=== PATIENT | male | born 1960 | race African-American/Black ===

== ENCOUNTER 2017-07-07 12:19 | Observation (INO) | payer OTHER ==
[2017-07-07 13:38] LABS: CKMB 2.2 ng/mL (0-6.6); Troponin I 0.113 ng/mL (< 0.028)
[2017-07-07] MEDS ORDERED: HYDROcodone/Acetaminophen 5/325 mg Tablet PO PRN (14:52)
[2017-07-07] MEDS ORDERED: Ondansetron ODT 4 MG TAB PO PRN (14:52)
[2017-07-07] MEDS ORDERED: Acetaminophen 325 MG TAB PO PRN (14:52)
[2017-07-07] MEDS ORDERED: Ondansetron HCl/PF 4 MG/2 ML Vial IVP PRN (14:52)
[2017-07-07] MEDS ORDERED: Enoxaparin Sodium 40 MG/0.4 ML SYRINGE SC SCH (15:30)
--- NOTE | 2017-07-07 15:40 | HP ---
DATE OF ADMISSION: 07/07/2017 PRIMARY CARE PHYSICIAN: Cash Neely D.O. TIME OF SERVICE: 1445. CHIEF COMPLAINT: Chest pain. HISTORY OF PRESENT ILLNESS: Mr. Velasco is a pleasant 56-year-old -[place] male with no sign ificant past medical history who presents to an outside Emergency Department with complaints of chest pain. The patient gives a history of chest discomfort. He describes a pressure sensation across his right chest and radiating down his right arm that occurred while walking across football field at the [employer] he works at. He leaned against him and fence, took some deep breaths and after a couple of minutes, went away. He did describe some lightheadedness, but no syncope or presyncope. No palpitations. The pain/tightness has not returned, however, two separate times in the last 24 hours, the patient co ntinued to have some lightheadedness and most recent today accompanied by some palpitations. He went to an outside Emergency Department for evaluation and was found to have troponin of 0.133, nonspecif ic ST-T changes and a blood pressure in the 150s over 100s. He has no significant risk factors other than tobacco use, so I transferred him here for possible non -ST elevation MA. On arrival here, we were called for admission. Repeat troponin was 0.113. He had no further chest p ains, no dyspnea on exertion, fevers, chills, cough, sputum production or orthostasis. PAST MEDICAL HISTORY: None. PAST SURGICAL HISTORY: Includes hernia repair about 20 years ago. HOME MEDICATIONS: None. ALLERGIES: NKDA. FAMILY HISTORY: Mother with diabetes and hypertension, he has an uncle with coronary disease with hi s first heart attack sometime in early 60s, but no premature coronary disease. SOCIAL HISTORY: Significant tobacco about 1-1/2 to 1 pack per day longer than he can remember and us e social alcohol and no IV drug use. He works for the [employer]. REVIEW OF SYSTEMS: Ten point review of systems performed was negative for all systems except as per HPI. PHYSICAL EXAMINATION: VITAL SIGNS: Temperature here 98.0, pulse 52, blood pressure 153/101, respiratory rate 20, O2 sat 98 % on room air. GENERAL: He is awake. He is alert. He is oriented x3. He is a thin, well-developed, well-nourishe d -[place]ian male who is in zero distress. HEENT: Normocephalic, atraumatic. Pupils equal, round, reactive to light bilaterally. ENT: Mucous membranes moist. No visible lesions. No thrush. NECK: Supple, without lymphadenopathy, JVD, or thyromegaly. He has normal carotid upstrokes. I do not appreciate bruits. RESPIRATORY: Clear to auscultation bilaterally without wheezes, rales or rhonchi. He has good air m ovement. Symmetrical chest excursion. No prolonged expiratory phase. CARDIOVASCULAR: He has a normal S1, he and S2 with a fixed split. He has no audible murmurs. No S3 or S4. ABDOMEN: Soft and is nontender, nondistended, no masses or organomegaly. No rebound, rigidity or gu arding. EXTREMITIES: No cyanosis, no clubbing. He has no edema. He has 2+ dorsalis pedis and posterior tib ial pulses bilaterally. SKIN: Warm and well perfused. No rashes or lesions. MUSCULOSKELETAL: Normal to inspection. Joints appear uninflamed. There is no palpable effusion. N o inflammation or tenderness. NEUROLOGIC: Cranial nerves II-XII were grossly intact. He has no focal neurologic deficits. Normal speech, 5/5 strength in all 4 extremities. LABORATORY DATA: Sodium is 134, potassium 3.8, chloride 104, bicarb 21, BUN 10, creatinine 1.06, glu cose 109, calcium 9.1. LFTs completely within normal limits. CBC: White count 7.5, hemoglobin 17.9 , hematocrit 50.8, platelet count 191,000. CK-MB is 2.5, troponin I 0.133 followed by 0.113. Chest x-ray shows no acute cardiopulmonary disease . ASSESSMENT AND PLAN: 1. Chest pain. The patient has a risk factor of tobacco use. We will place him on the nitro paste, hold beta dorita due to current bradycardia in the 50s. We will get serial cardiac biomarkers. If negative, we will get a stress test in the morning. It was abnormal, asked Cardiology to evaluate, will check a fasting lipid profile in the morning, and reevaluate. 2. Elevated blood pressure 153/101 on arrival, patient does not have a history of high blood pressur e and his mother says normally on the low side. We will watch closely, may be due to stress of being admitted. 3. Tobacco abuse, counseling regarding cessation was done. The patient was offered nicotine patch, but declined. 4. Abnormal troponins, is in indeterminate range of 0.133, then 0.113. Pain was yesterday, so certa inly could be trending down, but still should not have been in the truly abnormal range.
[2017-07-07 15:59] LABS: CKMB 1.8 ng/mL (0-6.6); Troponin I 0.115 ng/mL (< 0.028)
[2017-07-07] MEDS: Nitroglycerin 2% Ointment 1 INCH/1 GM Packet TOP SCH ×2 (16:19→23:15)
[2017-07-07] MEDS: Famotidine 20 MG TAB PO SCH (20:07)
[2017-07-07 23:16] LABS: CKMB 1.4 ng/mL (0-6.6); Troponin I 0.154 ng/mL (< 0.028)
[2017-07-08 05:03] LABS: ALT (SGPT) 11 U/L (8-55); AST (SGOT) 12 U/L (5-34); Albumin 3.5 g/dL (3.5-5.0); Alkaline Phosphatase 69 U/L (40-150); Anion Gap 10 mmol/L (10-20); BUN (Urea Nitrogen) 12 mg/dL (8.4-25.7); Bilirubin, Total 0.6 mg/dL (0.2-1.2); Calc. Creatinine Clearance 86 mL/min (70-130); Calcium 8.9 mg/dL (7.8-10.44); Carbon Dioxide 23 mmol/L (22-29); Cardiac Risk 3.2 (Less than 4.5); Chloride 107 mmol/L (98-107); Cholesterol 130 mg/dl (< 200 Desired); Estimated GFR-MDRD Greater than 90; Globulin 3.2 g/dL (2.4-3.5); Glucose 96 mg/dL (70-105); HDL Cholesterol 41 mg/dL (>60 Neg Risk); LDL Cholesterol, Calculated 71 mg/dL; Potassium 4.1 mmol/L (3.5-5.1); Protein, Total 6.7 g/dL (6.0-8.3); Sodium 136 mmol/L (136-145); Triglycerides 91 mg/dL (Less than 150)
[2017-07-08 07:44] LABS: Hemoglobin 15.7 g/dL (14.0-18.0); Mean Corpuscular HGB CONC 33.5 g/dL (32.0-36.0); Mean Corpuscular Hemoglobin 30.8 pg (27.0-31.0); Mean Corpuscular Volume 92.1 fl (80.0-94.0); Platelet Count 183 thou/uL (130-400); RBC Distribution Width 12.9 % (11.5-14.5); Red Blood Cell (RBC) Count 5.09 mill/uL (4.70-6.10); White Blood Cell (WBC) Count 5.2 thou/uL (4.8-10.8)
[2017-07-08 07:58] LABS: CKMB 1.1 ng/mL (0-6.6); Troponin I 0.127 ng/mL (< 0.028)
[2017-07-08] MEDS: Famotidine 20 MG TAB PO SCH ×2 (08:51→20:11)
[2017-07-08] MEDS: Nitroglycerin 2% Ointment 1 INCH/1 GM Packet TOP SCH ×2 (08:52→16:46)
[2017-07-08] MEDS ORDERED: Regadenoson 0.4 MG/5 ML SYRINGE ONE (10:00)
[2017-07-08 12:11] LABS: Band 1 % (5-11); Eosinophils 2 % (0-10); Lymphocytes 57 % (21-51); MDiff Complete? YES; Monocytes 10 % (0-10); Neutrophil 30 % (42-75); RBC Morphology Normal
--- NOTE | 2017-07-08 13:48 | NM ---
NUCLEAR MEDICINE CARDIAC STRESS WITH EF AND WALL MOTION: HISTORY: Indeterminate troponin. Chest pain. COMPARISON: None. TECHNIQUE: The patient was administered 9.5 mCi of Technetium 99m sestamibi for rest imaging and 30.30 mCi of Te chnetium 99m sestamibi for stress imaging. Cardiac gating is performed. FINDINGS: Homogeneous distribution of the radiotracer in the left ventricle on the nonattenuated correction william ges. No reversibility. No fixed defect. TID is 1.01. End-diastolic volume is 203 mL. End-systolic volume is 133 mL. CARDIAC GATING: Diffuse hypokinesis. Ejection fraction is 34%. IMPRESSION: 1. No reversibility. No fixed defect. 2. Cardiomegaly. 3. Global hypokinesis with ejection fraction is 34%. POS: JAMIE
[2017-07-08] MEDS ORDERED: Aspirin 81 mg Enteric Coated Tablet PO SCH (16:45)
--- NOTE | 2017-07-08 19:12 | CON ---
DATE OF CONSULTATION: 07/08/2017 HISTORY OF PRESENT ILLNESS: Myke Velasco is a 56-year-old black male. He denies any previous episodes of chest discomfort or shortness of breath. Yesterday, he smoked a cigarette and walked approximately 75-100 yards and began to notice substernal chest pressure. He became somewhat diaphoretic with this and also noted that the pain was pleuritic in nature. This lasted for approximately 1 minute and then resolved. He denies any dyspnea on exertion in the past. He denies any episodes of PND, orthopnea, or leg edema. PAST MEDICAL HISTORY: No history of hypertension, diabetes or hypercholesterolemia. MEDICATIONS: None. ALLERGIES: None. OPERATIONS: Tonsillectomy and hernia repair. SOCIAL HISTORY: Smokes 3/4 of a pack per day. He drinks 25-ounce beer daily. FAMILY HISTORY: Negative for coronary artery disease in immediate family. REVIEW OF SYSTEMS: Twelve point review of systems is otherwise unremarkable. PHYSICAL EXAMINATION: VITAL SIGNS: Blood pressure 156/86, pulse of 49 with sinus bradyarrhythmia. HEENT: PERRL. NECK: Supple. CHEST: Clear. CARDIAC: S1, S2 normal without any S3, S4 or murmurs. Carotid upstrokes normal without bruits. ABDOMEN: Normal bowel sounds without tenderness or organomegaly. EXTREMITIES: Revealed no clubbing, cyanosis or edema. NEUROLOGIC: Grossly intact. LABORATORY DATA: EKG revealed sinus bradycardia with anterolateral T-wave changes. CK-MBs are normal. Troponin I's are up to 0.154. Cholesterol 130, triglycerides 91, HDL 41, LDL 71. Sodium 136, potassium 4.1, chloride 107, carbon dioxide 23, BUN 12, creatinine 1.01. Hemoglobin 15.7, hematocrit 46.9, white count 5200, platelets 183,000. The patient underwent Lexiscan Cardiolite testing. There was no evidence of reversible ischemia or fixed defect. There was cardiomegaly with global hypokinesis with ejection fraction of 34%. IMPRESSION: 1. Somewhat atypical chest pain with the discomfort being pleuritic in nature. It only lasted 1 minute. 2. No evidence of ischemia or fixed defect on Cardiolite. 3. Ejection fraction of 34% on Cardiolite. 4. Smoker. 5. Alcohol use. PLAN: The patient will undergo echocardiography to better define his left ventricular function. I will continue to follow the patient with you. MTDD
[2017-07-08] MEDS: Lisinopril 2.5 MG TAB PO SCH (20:12)
[2017-07-09 05:11] LABS: #Basophils 0.1 thou/uL (0.0-0.2); #Eosinphils 0.1 thou/uL (0.0-0.7); #Lymphocytes 2.8 thou/uL (1.20-3.40); #Monocytes 0.8 thou/uL (0.11-0.59); #Neutrophils 2.1 thou/uL (1.40-6.50); %Basophils 1.2 % (0.0-1.0); %Eosinophils 2.5 % (0.0-10.0); %Lymphocytes 47.3 % (21.0-51.0); %Monocytes 13.8 % (0.0-10.0); %Neutrophils 35.3 % (42.0-75.0); Hemoglobin 15.2 g/dL (14.0-18.0); Mean Corpuscular HGB CONC 33.4 g/dL (32.0-36.0); Mean Corpuscular Volume 92.7 fl (80.0-94.0); Platelet Count 187 thou/uL (130-400); RBC Distribution Width 12.7 % (11.5-14.5); Red Blood Cell (RBC) Count 4.91 mill/uL (4.70-6.10); White Blood Cell (WBC) Count 5.9 thou/uL (4.8-10.8)
[2017-07-09 05:37] LABS: Anion Gap 11 mmol/L (10-20); BUN (Urea Nitrogen) 15 mg/dL (8.4-25.7); Calc. Creatinine Clearance 89 mL/min (70-130); Calcium 8.9 mg/dL (7.8-10.44); Carbon Dioxide 24 mmol/L (22-29); Cardiac Risk 3.7 (Less than 4.5); Chloride 104 mmol/L (98-107); Cholesterol 129 mg/dl (< 200 Desired); Estimated GFR-MDRD Greater than 90; Glucose 95 mg/dL (70-105); HDL Cholesterol 35 mg/dL (>60 Neg Risk); LDL Cholesterol, Calculated 67 mg/dL; Magnesium 2.1 mg/dL (1.6-2.6); Sodium 135 mmol/L (136-145); Triglycerides 135 mg/dL (Less than 150)
[2017-07-09 05:45] LABS: Troponin I 0.081 ng/mL (< 0.028)
[2017-07-09 06:16] VITALS: BMI 25.0
[2017-07-09] MEDS: Lisinopril 2.5 MG TAB PO SCH (08:38)
[2017-07-09] MEDS: Aspirin 81 mg Enteric Coated Tablet PO SCH (08:39)
[2017-07-09] MEDS: Famotidine 20 MG TAB PO SCH ×2 (08:39→20:21)
[2017-07-09] MEDS: Furosemide 20 MG TAB PO SCH (08:39)
[2017-07-09] MEDS ORDERED: Sodium Chloride 0.9% 1,000 ML IV SCH (10:00)
[2017-07-09] MEDS ORDERED: Communication Order-Pharmacy FS SCH (10:00)
--- NOTE | 2017-07-09 16:49 | PDOC.PN ---
- Subjective Encounter Start Date: 07/09/17 Encounter Start Time: 13:35 Pt results communicated. 2D echo with EF only 20-25%, Dr Rayo planning for PTCa tuesday, life vest. Pt alone, no fmaily in room. I He asked to talk, spend 70 minute sin the room face to face. Pt with multiple social stressors at home, and for the last months or so after internalizing his problems, starting drinking beer with a friend. drinks at least 8-9 brown, sometimes more. while drinking, smokes more, up to 2 pakcs daily for the last 6 months. didnt was to talk about this infront of his mom or . No CP, no SOB, no F/C, no N/V/D/C, no cough 10 point ROS performed and neg for all systems except as per HPI - Objective Resuscitation Status: Resuscitation Status FULL:Full Resuscitation MAR Reviewed: Yes Vital Signs & Weight: Vital Signs (12 hours) Temp Pulse Resp BP Pulse Ox 07/09/17 15:20 98.1 F 49 L 15 116/82 98 07/09/17 11:19 97.8 F 54 L 16 136/73 97 07/09/17 08:00 98.1 F 46 L 16 07/09/17 07:12 98.1 F 46 L 16 145/76 H 98 Weight Weight 164 lb 11.2 oz I&O: 07/08/17 07/09/17 07/10/17 06:59 06:59 06:59 Intake Total 940 1390 Output Total 300 Balance 640 1390 Result Diagrams: 07/09/17 04:08 07/09/17 04:08 Radiology Reviewed by me: Yes EKG Reviewed by me: Yes Phys Exam - Physical Examination Constitutional: NAD HEENT: PERRLA, moist MMs, sclera anicteric, oral pharynx no lesions Neck: no nodes, no JVD, supple, full ROM Respiratory: no wheezing, no rales, no rhonchi, clear to auscultation bilateral Cardiovascular: RRR, no significant murmur, no rub Gastrointestinal: soft, non-tender, no distention, positive bowel sounds Musculoskeletal: no edema, pulses present Neurological: non-focal, normal sensation, moves all 4 limbs Lymphatic: no nodes Psychiatric: normal affect, A&O x 3 Skin: no rash, normal turgor, cap refill <2 seconds Dx/Plan - Plan cont current plan of care, out of bed/ambulate * . watch, PTCA tuesday, life vest. follow up on cards recommendations
[2017-07-10] MEDS ORDERED: Sacubitril 24.5 MG/Valsartan 25.5 MG TABLET PO SCH (09:00)
[2017-07-10] MEDS: Famotidine 20 MG TAB PO SCH ×2 (09:10→20:14)
[2017-07-10] MEDS: Aspirin 81 mg Enteric Coated Tablet PO SCH (09:10)
[2017-07-10] MEDS: Furosemide 20 MG TAB PO SCH (09:10)
--- NOTE | 2017-07-10 13:11 | PDOC.PN ---
- Subjective Encounter Start Date: 07/10/17 Encounter Start Time: 09:40 pt up shaving, feels fine, no CP, no SOb, no orthopnea, no PND. no agitation or tremors, no F/C, no n/V/d/c 10 point ROS performed and neg for all systems except as per HPI discussed pt revelations with Dr Rayo - Objective Resuscitation Status: Resuscitation Status FULL:Full Resuscitation MAR Reviewed: Yes Vital Signs & Weight: Vital Signs (12 hours) Temp Pulse Resp BP BP Pulse Ox 07/10/17 11:50 98.1 F 46 L 16 141/87 H 98 07/10/17 07:48 98.4 F 45 L 14 07/10/17 07:41 98.4 F 45 L 14 07/10/17 07:12 98.3 F 46 L 16 139/95 H 97 07/10/17 03:58 98.4 F 45 L 14 143/81 H 96 Weight Weight 164 lb 11.2 oz I&O: 07/09/17 07/10/17 07/11/17 06:59 06:59 06:59 Intake Total 1390 1343 550 Output Total 75 Balance 1390 1268 550 Result Diagrams: 07/09/17 04:08 07/09/17 04:08 EKG Reviewed by me: Yes Phys Exam - Physical Examination Constitutional: NAD HEENT: PERRLA, moist MMs, sclera anicteric, oral pharynx no lesions Neck: no nodes, no JVD, supple, full ROM Respiratory: no wheezing, no rales, no rhonchi, clear to auscultation bilateral Cardiovascular: RRR, no significant murmur, no rub Gastrointestinal: soft, non-tender, no distention, positive bowel sounds Musculoskeletal: no edema, pulses present Neurological: non-focal, normal sensation, moves all 4 limbs Lymphatic: no nodes Psychiatric: normal affect, A&O x 3 Skin: no rash, normal turgor, cap refill <2 seconds Dx/Plan (1) Alcohol abuse Code(s): F10.10 - ALCOHOL ABUSE, UNCOMPLICATED Status: Acute Comment: for last 6 months, 8-10 drinks minimum daily (2) Tobacco abuse Code(s): Z72.0 - TOBACCO USE Status: Acute Comment: normally 1/2 ppd, up to 2 packs daily for last 6 months (3) Cardiomyopathy Code(s): I42.9 - CARDIOMYOPATHY, UNSPECIFIED Status: Acute Qualifiers: 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 cath tomorrow, life vest tomorrow. home when okay with cardiology
[2017-07-10] MEDS: Sacubitril 24.5 MG/Valsartan 25.5 MG TABLET PO SCH (20:14)
[2017-07-11] MEDS: Aspirin 81 mg Enteric Coated Tablet PO SCH (05:56)
[2017-07-11] MEDS: Famotidine 20 MG TAB PO SCH ×2 (05:56→22:08)
[2017-07-11] MEDS: Sacubitril 24.5 MG/Valsartan 25.5 MG TABLET PO SCH ×2 (05:56→22:09)
[2017-07-11] MEDS: Sodium Chloride 0.9% 1,000 ML IV SCH ×2 (05:57→18:49)
[2017-07-11] MEDS: Furosemide 20 MG TAB PO SCH (05:57)
[2017-07-11] MEDS ORDERED: Lidocaine 1% (PF) 30 ML VIAL ONE (07:12)
[2017-07-11] MEDS ORDERED: Heparin 10,000 UNITS/1 ML VIAL ONE (07:33)
[2017-07-11] MEDS ORDERED: Fentanyl 100 MCG/2 ML VIAL ONE (09:42)
[2017-07-11] MEDS ORDERED: Midazolam HCl 2 mg/2 ml Vial ONE (09:42)
[2017-07-11] MEDS ORDERED: Atropine Sulfate 1 mg/10 ml Syringe ONE (09:45)
[2017-07-11] MEDS ORDERED: Nitroglycerin 100MG/250ML BOT 250 ML ONE (10:04)
[2017-07-11] MEDS ORDERED: Protamine Sulfate 50 MG/5 ML VIAL ONE (10:13)
[2017-07-11] MEDS ORDERED: Sodium Chloride 0.9% 200 ML IV SCH (10:30)
[2017-07-11] MEDS ORDERED: traMADol HCl 50 MG TAB PO PRN (10:30)
[2017-07-11] MEDS ORDERED: Acetaminophen/Codeine 30-300mg Tablet PO PRN ×2 (10:30)
[2017-07-11] MEDS ORDERED: Nitroglycerin 0.4 MG TAB (25 Tab Bottle) SL PRN (10:30)
[2017-07-11] MEDS ORDERED: Sodium Chloride 0.9% 1,000 ML IV SCH (10:30)
[2017-07-11] MEDS ORDERED: Sacubitril 24.5 MG/Valsartan 25.5 MG TABLET PO SCH (11:45)
[2017-07-11] MEDS ORDERED: Iopamidol 370 76% 50 ML VIAL FS ONE (13:55)
[2017-07-11] MEDS ORDERED: Iopamidol 370 76% 100 ML VIAL ONE (13:55)
--- NOTE | 2017-07-11 13:58 | STRESS ---
Acquisition Time: 2017-07-08 10:04:31 Total Exercise Time: 00:01:00 Test Indications: CHEST PAIN Medications: Protocol: LEXISCAN Max HR: 085 BPM 51% of Pred: 165 BPM Max BP: 142/090 mmHG Max Work Load: 1.0 METS RESTING ECG: SINUS BRADYCARDIA AT 48 BPM WITH NON-SPECIFIC T-WAVE CHANGES SYMPTOMS: DYSPNEA NORMAL BP RESPONSE ECTOPY: RARE PVC'S ECG STRESS: NO ST CHANGES, MORE T-WAVE INVERSION IN LEADS V4-V6 INTERPRETATION: AWAIT NUCLEAR IMAGES FOR DEFINITIVE DIAGNOSIS Confirmed by ROSY ANTHONY (2), warehouse guard ALAN RICHARDSON ([id number]) on 07/11/2017 1:57:59 PM Referred By: MD Zaria LAURA Confirmed By:ROSY ANTHONY
--- NOTE | 2017-07-11 17:05 | PDOC.PN ---
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 Overall feeling ok and no CP or SOB. - Objective Resuscitation Status: Resuscitation Status FULL:Full Resuscitation MAR Reviewed: Yes Vital Signs & Weight: Vital Signs (12 hours) Temp Pulse Resp BP BP Pulse Ox 07/11/17 15:15 98.2 F 42 L 12 127/63 96 07/11/17 12:05 63 20 153/91 H 07/11/17 10:51 98.2 F 53 L 20 156/84 H 98 07/11/17 08:00 97.9 F 48 L 12 07/11/17 07:10 97.9 F 48 L 12 150/96 H 97 Weight Weight 164 lb 12.8 oz I&O: 07/10/17 07/11/17 07/12/17 06:59 06:59 06:59 Intake Total 1343 1150 1500 Output Total 75 825 1300 Balance 1268 325 200 Result Diagrams: 07/09/17 04:08 07/09/17 04:08 Radiology Reviewed by me: Yes (C - mild CAD, mid LAD and OM, EF 25%) EKG Reviewed by me: Yes (Tele - SR) Phys Exam - Physical Examination Constitutional: NAD HEENT: PERRLA, moist MMs, sclera anicteric, oral pharynx no lesions Neck: no nodes, no JVD, supple Respiratory: no wheezing, no rales, no rhonchi, clear to auscultation bilateral S1, S2 Cardiovascular: RRR, no significant murmur, no rub, gallop Gastrointestinal: soft, non-tender, no distention, positive bowel sounds Musculoskeletal: no edema, pulses present Neurological: non-focal, normal sensation, moves all 4 limbs Psychiatric: normal affect, A&O x 3 Skin: no rash, normal turgor, cap refill <2 seconds Dx/Plan (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 - ALCOHOLIC CARDIOMYOPATHY Status: Acute Comment: Continue ASA, Lipitor, Lasix and Entresto, fitted for LifeVest (2) Alcohol abuse Code(s): F10.10 - ALCOHOL ABUSE, UNCOMPLICATED Status: Acute Comment: Alcohol cessation resources (3) Tobacco abuse Code(s): Z72.0 - TOBACCO USE Status: Acute Comment: Tobacco cessation resources prior to d/c (4) Dyslipidemia Code(s): E78.5 - HYPERLIPIDEMIA, UNSPECIFIED Status: Acute Comment: Lipitor 10mg HS - Plan plan discussed w/ family, nursing home social worker, out of bed/ambulate, DVT proph w/SCDs Stable overall -: Continue ASA, Lipitor -: Continue Entresto -: LifeVest instructions -: Likely home in am 07/12/17 * .
[2017-07-11] MEDS ORDERED: Atorvastatin Calcium 10 MG TAB PO SCH (21:00)
[2017-07-11] MEDS ORDERED: Atorvastatin Calcium 40 MG TAB PO SCH (21:00)
[2017-07-12] MEDS: Sodium Chloride 0.9% 1,000 ML IV SCH (03:02)
[2017-07-12 04:41] VITALS: TEMP 98.2
[2017-07-12 08:21] VITALS: BP 149/77
[2017-07-12] MEDS: Famotidine 20 MG TAB PO SCH (09:51)
[2017-07-12] MEDS: Furosemide 20 MG TAB PO SCH (09:51)
[2017-07-12] MEDS: Aspirin 81 mg Enteric Coated Tablet PO SCH (09:52)
[2017-07-12] MEDS: Sacubitril 24.5 MG/Valsartan 25.5 MG TABLET PO SCH (09:52)
--- NOTE | 2017-07-12 12:57 | DIS ---
DISCHARGE DIAGNOSES: 1. Nonischemic cardiomyopathy with ejection fraction of 20-25%. 2. Alcohol-induced cardiomyopathy, suspected. 3. Alcohol use. 4. Tobacco abuse. 5. Dyslipidemia. 6. Hypertension, stable. CONSULTATIONS: Dr. Rayo with Cardiology Service. PERTINENT LABORATORY AND X-RAY FINDINGS: Complete metabolic profile within normal limits. Troponin I ranged between 0.081-0.154, total cholesterol 129, triglycerides 135, HDL 35, LDL 67. CBC within n ormal limits. Cardiolite stress test dated 07/08/2017 showed no evidence of reversible ischemia or f ixed defects. Calculated ejection fraction of 34%. Global hypokinesis noted. A 2D transthoracic ec hocardiogram dated 07/08/2017 showed ejection fraction of 20-25%. Moderate to severe mitral valve re gurgitation. Cardiac catheterization dated 07/11/2017 showed 50% lesion of the mid LAD and 30% lesio n of the first obtuse marginal of left circumflex, ejection fraction estimated at 25%. HOSPITAL COURSE: The patient initially presented to the emergency department complaining of chest pa in with elevated troponin I and nonspecific ST-T wave changes on EKG analysis. The patient underwent extensive cardiac evaluation including Cardiolite stress testing showing no evidence of reversible o r fixed ischemia with depressed ejection fraction in the 34% range. The patient underwent 2D transth oracic echocardiogram evaluation confirming a depressed ejection fraction in the 20-25% range. The p atient was evaluated by the Cardiology Service with recommendations to proceed with left heart cathet erization at which the patient was noted with mild coronary artery disease and ejection fraction in t he 25% range. Due to patient's cardiomyopathy and risk for sudden cardiac the patient was kristal mmended for a LifeVest at which point the patient was fitted appropriately and given instruction on h ome use. Telemetry monitoring did show sinus bradycardia with heart rates in the 40s to 50s througho ut the hospital course and patient was not deemed an appropriate candidate for beta dorita therapy. The patient was initiated on Entresto, Lipitor, aspirin and Lasix. The patient tolerated this thera py without difficulty and remained clinically stable throughout the hospital course. I have examined the patient at the time of discharge and discussed followup and disposition instructi ons. The patient has verbalized understanding and agreement with followup instructions and ready for discharge on 07/12/2017. DISCHARGE MEDICATIONS: 1. Enteric coated aspirin 81 mg 1 tab p.o. daily. 2. Lipitor 10 mg p.o. at bedtime. 3. Lasix 20 mg p.o. daily. 4. Entresto 24.5/25.5 1 tab p.o. b.i.d., #60. FOLLOWUP: The patient may follow up with his primary care provider at [facility] in [facility] 07/18/2017 at 1:45 p.m. The patient may also follow up with Dr. Rizwan Rayo with [facility] Cardiology Service 3-4 weeks after discharge. The patient also given referral for outpatient cardia c rehabilitation on 07/21/2017 at 11:00 a.m. CONDITION ON DISCHARGE: Stable. ACTIVITY: Ad ruthann. SPECIAL INSTRUCTIONS: No beta dorita therapy due to bradycardia into the 40s. DIET: Heart healthy. CODE STATUS: Full. DISPOSITION: Home on 07/12/2017.
== END 2017-07-12 11:24 | disposition home or self-care (01) ==
LOC: ERS 12:19 → 2SW 14:23
PROVIDERS: ADMIT Internal Medicine Infectious Disease; ATTEND Internal Medicine Infectious Disease
PROC: 4A023N7 Measurement of Cardiac Sampling and Pressure, Left Heart, Percutaneous Approach (ICD-10-PCS; principal; 2017-07-12)
PROC: B2151ZZ Fluoroscopy of Left Heart using Low Osmolar Contrast (ICD-10-PCS; 2017-07-12)
DX: I42.8 Other cardiomyopathies (principal); I25.10 Atherosclerotic heart disease of native coronary artery without angina pectoris; E78.5 Hyperlipidemia, unspecified; I10 Essential (primary) hypertension; F17.210 Nicotine dependence, cigarettes, uncomplicated; Z72.89 Other problems related to lifestyle; Z90.89 Acquired absence of other organs; Z98.890 Other specified postprocedural states
CPT/HCPCS: 36415; 78452; 80048; 80053; 80061; 82553; 83735; 84484; 85025; 85347; 93005; 93017; 93306; 93458; 93798; 96360; 96361; 96372; 99152; 99153; A4216; A9500; C1769; C1887; G0378; J0461; J1644; J1650; J2001; J2250; J2720; J2785; J3010